=== PATIENT | male | born 1995 | race Caucasian/White ===

== ENCOUNTER → 2020-08-04 | Outpatient (CLI) | payer BC | LOC: M LABSMTC 12:57 | PROVIDERS: ATTEND Family Medicine | DX: Z20.828 Contact with and (suspected) exposure to other viral communicable diseases (principal) ==

== ENCOUNTER → 2020-09-09 | Outpatient (CLI) | payer BC ==
--- NOTE | 2020-09-13 12:15 | ECHO ---
DATE OF PROCEDURE: 09/09/2020 Age: 24 Gender: Male Height: 72 inches Weight: 145 pounds Body surface area: 1.85 m2 PATIENT LOCATION: Outpatient. REFERRING PHYSICIAN: John Bautista DO INDICATION: Marfanoid syndrome. MEASUREMENTS: 2D Measurements: RV 3.7 cm LV 4.9 cm Septum 0.9 cm Posterior wall 0.9 cm Aortic Root 2.8 cm LA 3.1 cm LVEF 65% Doppler Measurements: AV 1.03 m/s LVOT 0.88 m/s MV-E 69, A 36, E/A ratio 1.9 Early mitral deceleration time 333 msec E prime medial 10, A prime medial 7, E prime lateral 14 PV 0.85 m/s Pulmonary artery acceleration time 148 msec PASP - 17 mmHg IVC 0.8 cm COMMENTS: Sinus bradycardia without intraventricular conduction disturbance. M-mode and two-dimensional echocardiography was performed with pulse, continuous wave, color flow, and tissue Doppler studies. Normal left ventricular size, wall thickness, and wall motion. Normal left atrial size and Doppler assessment of LV diastolic function and estimated mean left atrial pressure. Normal right heart chamber sizes and motion and estimated pulmonary arterial pressure. Somewhat reduced IVC size with normal respiratory collapse in keeping with a somewhat low central venous pressure. Normal aortic dimensions (aortic root, ascending aorta, and aortic arch, as well as proximal ascending aorta). Normal appearing and functioning valvular structures. No apparent intracardiac mass or pericardial effusion. MTDD
== END ==
LOC: M CARPUL 08:03
PROVIDERS: ATTEND Student in an Organized Health Care Education/Training Program
DX: R29.91 Unspecified symptoms and signs involving the musculoskeletal system (principal); R00.1 Bradycardia, unspecified

== ENCOUNTER → 2021-11-20 | Outpatient (REF) | payer BC | LOC: M SFHCPLAZ 09:55 | PROVIDERS: ATTEND Family Medicine | DX: Z13.220 Encounter for screening for lipoid disorders (principal); Z13.1 Encounter for screening for diabetes mellitus; Z53.9 Procedure and treatment not carried out, unspecified reason ==

== ENCOUNTER → 2022-07-31 | Outpatient (CLI) | payer BC ==
[2022-07-31 13:30] LABS: EOS # 0.1 10^3/uL (0.0-0.5); EOS % 2.3 % (0.0-3.0); HEMATOCRIT 42.8 % (42.0-52.0); HEMOGLOBIN 14.8 g/dl (13.5-17.5); LYMPH # 1.6 10^3/uL (1.5-5.0); LYMPH % 41.2 % (24.0-44.0); MEAN CORPUSCULAR HEMOGLOBIN 32.2 pg (27.0-33.0); MEAN CORPUSCULAR HGB CONC 34.6 g/dl (32.0-36.5); MONO # 0.4 10^3/uL (0.0-0.8); NEUTROPHILS # 1.7 10^3/uL (1.5-8.5); NEUTROPHILS % 44.5 % (36.0-66.0); PLATELET COUNT, AUTOMATED 347 10^3/uL (150-450); WHITE BLOOD COUNT 3.9 10^3/uL (4.0-10.0)
[2022-07-31 13:42] LABS: HEMOGLOBIN A1c 4.8 % (4.0-6.0)
[2022-07-31 14:00] LABS: CHOLESTEROL LEVEL 191 MG/DL (<200); CHOLESTEROL RISK RATIO 3.87 (<5); HDL CHOLESTEROL 49.3 MG/DL (>40); LDL CHOLESTEROL 111.1 MG/DL (<100); NON-HDL-C 142 MG/DL; TRIGLYCERIDES LEVEL 153 MG/DL (<150)
[2022-07-31 14:01] LABS: THYROID STIMULATING HORMONE 1.138 uIU/ML (0.55-4.78); TOTAL 25(OH) VITAMIN D 14.2 NG/ML (20.0-100.0)
[2022-07-31 14:03] LABS: FREE T4 1.13 NG/DL (0.89-1.76)
[2022-07-31 14:28] LABS: HIV 1&2 SCREEN CENTAUR NEGATIVE (NEGATIVE)
[2022-07-31 14:35] LABS: HEPATITIS C VIRUS ABY INDEX 0.1 INDEX (<0.8)
== END ==
LOC: M PLALAB 09:38
PROVIDERS: ATTEND Student in an Organized Health Care Education/Training Program
DX: Z13.1 Encounter for screening for diabetes mellitus (principal)

== ENCOUNTER → 2025-02-19 | Outpatient (REF) | payer BC | LOC: M SFHCPLAZ 09:49 | DX: Z00.00 Encounter for general adult medical examination without abnormal findings (principal); Z13.220 Encounter for screening for lipoid disorders ==